=== PATIENT | male | born 1955 | race Caucasian/White ===

== ENCOUNTER 2020-09-03 07:14 | Day surgery (SDC) | payer MEDICARE ==
[2020-09-01 09:48] VITALS: BMI 31.9
[2020-09-03] MEDS ORDERED: ALPRAZolam 0.25 MG TAB PO PRN (07:32)
[2020-09-03] MEDS ORDERED: ASPIRIN 325 MG TAB PO STA (07:32)
[2020-09-03] MEDS ORDERED: NITROGLYCERIN SL TABS 0.4 MG TAB SUBLINGUAL PRN (07:32)
[2020-09-03] MEDS ORDERED: ALPRAZolam 0.5 MG TAB PO PRN (07:32)
[2020-09-03] MEDS ORDERED: ATORVASTATIN 80 MG TAB PO STA (07:32)
[2020-09-03] MEDS ORDERED: HEPARIN SODIUM,PORCINE 2,500 UNIT in SODIUM CHLORIDE 0.9% 250 ML IRRIGATION PRN (07:32)
[2020-09-03] MEDS ORDERED: HEPARIN SODIUM,PORCINE 10,000 UNIT in SODIUM CHLORIDE 0.9% 1,000 ML IRRIGATION PRN (07:32)
[2020-09-03] MEDS ORDERED: SODIUM CHLORIDE 0.9% 1,000 ML in EMPTY BAG 1 BAG IV ONE (07:32)
[2020-09-03] MEDS ORDERED: SODIUM CHLORIDE 0.9% 1,000 ML IV ONE (08:09)
[2020-09-03 08:38] LABS: Glucose,Whole Blood 144 mg/dL (75-99)
[2020-09-03 08:41] LABS: Basophils % (A) 1 %; Eosinophils # (A) 0.2 k/uL (0-0.7); Eosinophils % (A) 3 %; HCT 39.6 % (39.0-53.0); HGB 13.8 gm/dL (13.0-17.5); Lymphocytes # (A) 0.9 k/uL (1.0-4.8); Lymphocytes % (A) 14 %; MCH 32.9 pg (25.0-35.0); MCHC 34.8 g/dL (31.0-37.0); MCV 94.5 fL (80.0-100.0); Mean Platelet Volume 8.4; Monocytes # (A) 0.5 k/uL (0-1.0); Monocytes % (A) 9 %; Neutrophils # (A) 4.6 k/uL (1.3-7.7); Neutrophils % (A) 72 %; Platelet Count 190 k/uL (150-450); RBC 4.19 m/uL (4.30-5.90); RDW 13.3 % (11.5-15.5); WBC 6.4 k/uL (3.8-10.6)
[2020-09-03] MEDS ORDERED: LIDOCAINE 1% INJ 10MG/ML (20 ML MDV) ONE ×2 (08:41→09:54)
[2020-09-03] MEDS ORDERED: VERAPAMIL 2.5 MG/ML 2 ML AMP ONE (08:41)
[2020-09-03 08:48] VITALS: TEMP 98.7
[2020-09-03 08:53] LABS: African American GFR (CKD) >90 (>60 ml/min/1.73 sqM); Anion Gap 7 mmol/L; Blood Urea Nitrogen 27 mg/dL (9-20); Calcium 9.5 mg/dL (8.4-10.2); Carbon Dioxide 30 mmol/L (22-30); Chloride 99 mmol/L (98-107); Glucose 147 mg/dL (74-99); Non-African American GFR(CKD) >90 (>60 ml/min/1.73 sqM); Sodium 136 mmol/L (137-145)
[2020-09-03 09:00] LABS: Potassium 4.8 mmol/L (3.5-5.1)
[2020-09-03] MEDS ORDERED: fentaNYL (PF) 50 MCG/ML 2 ML AMP ONE (09:06)
[2020-09-03] MEDS ORDERED: HEPARIN SODIUM 1,000 UN/ML (10ML VL) ONE (09:06)
[2020-09-03] MEDS ORDERED: MIDAZOLAM 2 MG/2 ML VIAL IVP ONE (09:24)
[2020-09-03] MEDS ORDERED: fentaNYL (PF) 50 MCG/ML 2 ML AMP IVP ONE (09:24)
[2020-09-03] MEDS ORDERED: LIDOCAINE 1% INJ 10MG/ML (20 ML MDV) SQ ONE ×2 (09:27→09:41)
[2020-09-03] MEDS ORDERED: VERAPAMIL SYRINGE (5 MG/10 ML) INTRAARTER ONE (09:30)
[2020-09-03] MEDS ORDERED: HEPARIN SODIUM 1,000 UN/ML (10ML VL) IV ONE (09:32)
[2020-09-03] MEDS ORDERED: IOPAMIDOL-370 125ML BTL INJ ONE (10:02)
[2020-09-03] MEDS ORDERED: RX INFO: IV CONTRAST WAS GIVEN 1 EACH MISC MISCELLANE PRN (10:13)
[2020-09-03] MEDS ORDERED: SODIUM CHLORIDE 0.9% 1,000 ML IV SCH (10:15)
--- NOTE | 2020-09-03 10:21 | P.CARDCATH ---
Date of Procedure: 09/03/20 Preoperative Diagnosis: Positive stress test with ischemia of the inferior wall, frequent PVCs Postoperative Diagnosis: Total occlusion of the mid RCA with both ipsilateral and contralateral collaterals Procedure(s) Performed: Left heart catheterization and aortography. No LV gram Description of Procedure: HISTORY: This is a 65-year-old gentleman with strong family history of ischemic heart disease was evaluated because of frequent PVCs. Patient had a stress test that showed ischemia in the inferior wall. Patient did not have any chest pain. In view of positive stress test, cardiac arrhythmias and family history, patie nt is advised to have cardiac cath for definitive diagnosis. Patient was referred by Dr. Bingham CONSENT:I have discussed the risks, benefits and alternative therapies for the above-mentioned procedure and for both sedation/analgesia as well as necessary blood product administration, if indicated, as they pertain to this patient. The patient has indicated understanding and acceptance of the risks and procedures discussed. PROCEDURE: Patient was brought to the lab in a fasting state. Patient was given some IV sedation. The right radial artery was entered using Seldinger technique. A 6-Icelandic sheath was placed in the radial artery. A 5-Icelandic catheter. The guidewire was advanced. After multiple attempts the wire could not be advanced and the ascending aorta because of tortuosity. The procedure was abandoned from the right radial approach and Was done from the right groin. The right groin is infiltrated with lidocaine and right femoral artery was entered using Seldinger technique. A 6-Icelandic catheter was left in place and selective coronary arteriography and left ventriculography was performed. Patient tolerated the procedure well. Femoral angiogram was performed and Angio-Seal was applied for hemostasis. No immediate complications were noted and patient was transferred to [facility] in a stable condition Conscious Sedation: Versed 1mg Fentanyl 50 g Duration 42minutes . Patient is also given heparin 4000 units HEMODYNAMICS: Aortic pressure is about 130/70 . Left ventricle end-diastolic pressure is 16-20. No gradient across the aortic valve SELECTIVE CORONARY ARTERIOGRAPHY: LEFT MAIN: Normal length and free of occlusive disease THE LEFT ANTERIOR DESCENDING CORONARY ARTERY: . Good caliber vessel free of any significant occlusive disease. Gives rise good-sized diagonal branch THE LEFT CIRCUMFLEX AND IS CORONARY ARTERY: Good caliber vessel giving rise to good-sized OM branch. There could be a total occlusion of the AV groove segment THE RIGHT CORONARY ARTERY: . This is a moderate caliber vessel is the near-total left total occlusion in the midportion. There is ipsilateral collaterals filling the distal RCA. There are also contralateral collaterals LEFT VENTRICULOGRAPHY: Not performed Aortic root injection: This was performed and the right oblique of projection. The aortic valve appears to be uncoiled and dilated. No aortic valve regurgitation FINAL IMPRESSION: . Total or near total occlusion of the RCA. Collaterals both ipsilateral and contralateral. Left coronary system is free of occlusive disease. There is suspicion that could be total occlusion of the apical segment of the circumflex PLAN: Maximum medical therapy. Attempts could be made to open the totally occluded right coronary artery which seemed to be recanalized PROGNOSIS: Fair
[2020-09-03 15:53] VITALS: BP 138/72; PULSE 50
== END 2020-09-03 15:00 | disposition home or self-care (01) ==
LOC: CATHCVL 07:14
PROVIDERS: ATTEND Internal Medicine Cardiovascular Disease
DX: I25.10 Atherosclerotic heart disease of native coronary artery without angina pectoris (principal); I25.82 Chronic total occlusion of coronary artery; I10 Essential (primary) hypertension; I77.1 Stricture of artery; Z20.822 Contact with and (suspected) exposure to COVID-19; I49.3 Ventricular premature depolarization; E78.5 Hyperlipidemia, unspecified; E78.00 Pure hypercholesterolemia, unspecified; E11.9 Type 2 diabetes mellitus without complications; G72.0 Drug-induced myopathy; Z79.84 Long term (current) use of oral hypoglycemic drugs; Z79.82 Long term (current) use of aspirin; Z79.899 Other long term (current) drug therapy
CPT/HCPCS: 93458; 93567; 80048; 85025; 87635; C1760; C1894 ×2; C1769 ×4; J2250; J2001; J3010; J1644; Q9967

== ENCOUNTER 2020-09-17 10:11 | Day surgery (SDC) | payer MEDICARE ==
[2020-09-16 12:52] VITALS: BMI 30.8
[~2020-09-17 10:11] MED LIST: ALPRAZolam 0.25 MG TAB PO PRN; ALPRAZolam 0.5 MG TAB PO PRN; ASPIRIN 325 MG TAB PO STA; ATORVASTATIN 80 MG TAB PO STA; HEPARIN SODIUM,PORCINE 10,000 UNIT in SODIUM CHLORIDE 0.9% 1,000 ML IRRIGATION PRN; HEPARIN SODIUM,PORCINE 2,500 UNIT in SODIUM CHLORIDE 0.9% 250 ML IRRIGATION PRN; NITROGLYCERIN SL TABS 0.4 MG TAB SUBLINGUAL PRN; SODIUM CHLORIDE 0.9% 1,000 ML in EMPTY BAG 1 BAG IV ONE
[2020-09-17 11:15] LABS: Glucose,Whole Blood 145 mg/dL (75-99)
[2020-09-17 11:20] LABS: Basophils # (A) 0.1 k/uL (0-0.2); Basophils % (A) 1 %; Eosinophils # (A) 0.1 k/uL (0-0.7); Eosinophils % (A) 2 %; HCT 41.4 % (39.0-53.0); HGB 14.1 gm/dL (13.0-17.5); Lymphocytes # (A) 1.1 k/uL (1.0-4.8); Lymphocytes % (A) 19 %; MCH 31.2 pg (25.0-35.0); MCV 91.9 fL (80.0-100.0); Mean Platelet Volume 8.4; Monocytes # (A) 0.4 k/uL (0-1.0); Monocytes % (A) 6 %; Neutrophils # (A) 4.1 k/uL (1.3-7.7); Neutrophils % (A) 70 %; Platelet Count 213 k/uL (150-450); RBC 4.51 m/uL (4.30-5.90); RDW 13.1 % (11.5-15.5); WBC 5.9 k/uL (3.8-10.6)
[2020-09-17 11:37] LABS: African American GFR (CKD) >90 (>60 ml/min/1.73 sqM); Anion Gap 9 mmol/L; Blood Urea Nitrogen 13 mg/dL (9-20); Calcium 9.6 mg/dL (8.4-10.2); Carbon Dioxide 26 mmol/L (22-30); Chloride 99 mmol/L (98-107); Glucose 146 mg/dL (74-99); Non-African American GFR(CKD) >90 (>60 ml/min/1.73 sqM); Potassium 4.6 mmol/L (3.5-5.1); Sodium 134 mmol/L (137-145)
[2020-09-17] MEDS ORDERED: LIDOCAINE 1% INJ 10MG/ML (20 ML MDV) ONE (11:52)
[2020-09-17] MEDS ORDERED: fentaNYL (PF) 50 MCG/ML 2 ML AMP ONE (12:04)
[2020-09-17] MEDS ORDERED: fentaNYL (PF) 50 MCG/ML 2 ML AMP IV ONE (12:28)
[2020-09-17] MEDS ORDERED: LIDOCAINE 1% INJ 10MG/ML (20 ML MDV) SQ ONE (12:33)
[2020-09-17] MEDS ORDERED: CLOPIDOGREL 75 MG TAB ONE (12:36)
[2020-09-17] MEDS ORDERED: HEPARIN SODIUM 1,000 UN/ML (10ML VL) ONE (12:36)
[2020-09-17] MEDS ORDERED: CLOPIDOGREL 75 MG TAB PO ONE (12:42)
[2020-09-17] MEDS ORDERED: MIDAZOLAM 2 MG/2 ML VIAL IV ONE (12:47)
[2020-09-17] MEDS ORDERED: IOPAMIDOL-370 100ML BTL INJ ONE ×2 (13:00→13:22)
[2020-09-17] MEDS ORDERED: RX INFO: IV CONTRAST WAS GIVEN 1 EACH MISC MISCELLANE PRN (13:46)
[2020-09-17] MEDS ORDERED: ZOLPIDEM 5 MG TAB PO PRN (13:46)
[2020-09-17] MEDS ORDERED: MAG HYDROX/AL HYDROX/SIMETH 30 ML CUP PO PRN (13:46)
[2020-09-17] MEDS ORDERED: ATROPINE SULFATE 0.1 MG/ML 10ML SYRINGE IV PRN (13:46)
[2020-09-17] MEDS ORDERED: NITROGLYCERIN SL TABS 0.4 MG TAB SUBLINGUAL PRN (13:46)
[2020-09-17] MEDS ORDERED: SODIUM CHLORIDE 0.9% 1,000 ML IV SCH (14:00)
[2020-09-17 17:11] LABS: Glucose,Whole Blood 148 mg/dL (75-99)
[2020-09-17] MEDS: carvediloL 6.25 MG TAB PO SCH (18:00)
[2020-09-17 20:03] LABS: Glucose,Whole Blood 231 mg/dL (75-99)
--- NOTE | 2020-09-17 20:33 | PTCA ---
PERCUTANEOUSTRANS CORORONARY ANGIOGRAPHY Mr. Doherty is a 65-year-old male known history of hypertension, hyperlipidemia, diabetes mellitus, who has been followed by Dr. Bingham, underwent myocardial perfusion imaging that revealed evidence of inferior wall ischemia. Subsequently, underwent cardiac catheterization by Dr. Su and that revealed chronically occluded right coronary artery with collaterals from the left system. In view of that, and after discussion with the patient, recommendation again regarding attempt angioplasty and stenting of the right coronary artery. The procedure, as well as the risks and complications, were discussed with the patient who is in full understanding and agreement. PROCEDURE: Patient was brought to laboratory supervisor in a fasting semi-sedated state after receiving fentanyl and Benadryl and achieving moderate conscious sedated state. Using Xylocaine anesthesia and Seldinger technique, a 6-Sudanese sheath was introduced in the left femoral artery. Right coronary angiography performed using 6-Sudanese 0.75 left Amplatz catheter, after cannulating the right coronary ostium a SuperCross straight microcatheter with a 0.014 balanced medium weight J-wire was advanced across the vessel. Multiple attempts to cross the lesion in the total occlusion were unsuccessful. That wire was removed and a Whisper J-wire was advanced and was unsuccessful subsequently a Fielder XT was advanced and there was no ability to reconnect to the distal segment. There was some intimal dissection at that time. Then, because of the inability to reconnect to the distal cap, the procedure was stopped. There was no immediate complication. Patient had no chest discomfort or EKG changes. Of note, the patient received oral loading dose of clopidogrel, as well as 8000 units of intravenous heparin. His ACC was followed. RESULTS: Unsuccessful recanalization of chronically occluded right coronary artery. RECOMMENDATION: Patient will be continued on his present medical therapy with maximal medical therapy. If he has any chest discomfort, then I would recommend referral to a tertiary care service to undergo high risk chronic total occlusion of the right coronary artery. Those findings and recommendations were discussed with the patient his family who were singing in agreement. Duration of the sedation is 54 minutes. MMANDREWL / IJN: [id number] / MTDD
[2020-09-17] MEDS ORDERED: lisinopriL 20 MG TAB PO SCH (21:00)
[2020-09-18 02:57] VITALS: RESP 16
[2020-09-18 06:01] LABS: African American GFR (CKD) >90 (>60 ml/min/1.73 sqM); Anion Gap 5 mmol/L; Blood Urea Nitrogen 13 mg/dL (9-20); Carbon Dioxide 29 mmol/L (22-30); Chloride 99 mmol/L (98-107); Glucose 111 mg/dL (74-99); Non-African American GFR(CKD) >90 (>60 ml/min/1.73 sqM); Potassium 4.4 mmol/L (3.5-5.1); Sodium 133 mmol/L (137-145)
[2020-09-18 06:58] LABS: Glucose,Whole Blood 145 mg/dL (75-99)
[2020-09-18 07:23] VITALS: BP 163/81; PULSE 65; TEMP 98.3
[2020-09-18] MEDS: carvediloL 6.25 MG TAB PO SCH (07:46)
[2020-09-18] MEDS ORDERED: MULTIVITAMINS, THERA 1 EACH TAB PO SCH (09:00)
[2020-09-18] MEDS ORDERED: ASPIRIN 81 MG PO SCH (09:00)
[2020-09-18] MEDS ORDERED: CLOPIDOGREL 75 MG TAB PO SCH (09:00)
[2020-09-18] MEDS ORDERED: ATORVASTATIN 40 MG TAB PO SCH (09:00)
--- NOTE | 2020-09-18 09:16 | PN ---
PROGRESS NOTE Mr. Doherty is a 65-year-old male with known history of hypertension, hyperlipidemia, diabetes mellitus, who underwent cardiac catheterization, was found to have chronically occluded right coronary artery. He was brought in yesterday to an attempt to recannulize the vessel. There was inability to reconnect with the distal cap. He is doing well this morning. He has no symptoms. His is breathing stable. He denies any dizziness, palpitation. He denies any nausea. He continued to be on aspirin once a day, Lipitor 40 mg daily, Coreg 6.25 mg twice a day, Plavix 75 mg daily, Zestril 40 mg daily. PHYSICAL EXAMINATION: Blood pressure running in the 130s with a heart rate in 60s. Lungs: Clear. Heart regular rate and rhythm, S1, S2. No S3. No rub. Abdomen: Soft, nontender. Left groin no hematoma. LAB DATA: Lab data revealed BUN and creatinine 13 and 0.67, potassium 4.4. IMPRESSION: 1. Status post unsuccessful recanalization of chronic occluded right coronary artery. 2. Hypertension. 3. Hyperlipidemia. 4. Diabetes mellitus. RECOMMENDATIONS: Patient should be able to be discharged home today. Follow up as an outpatient with Dr. Bingham. If he has any symptoms, then I would recommend to proceed with high risk angioplasty with recanalization of chronic occlusion, possible retrograde approach in a tertiary care facility. Those findings were discussed with the patient, who was in full understanding and agreement. MMODL / IJN: [id number] /
== END 2020-09-18 09:22 | disposition home or self-care (01) ==
LOC: CATHCVL 10:11 → 6NMEDSUR 14:41 → CATHCVL 09-18 09:22
PROVIDERS: ATTEND Internal Medicine Interventional Cardiology
DX: I25.10 Atherosclerotic heart disease of native coronary artery without angina pectoris (principal); I25.82 Chronic total occlusion of coronary artery; E11.9 Type 2 diabetes mellitus without complications; I10 Essential (primary) hypertension; E78.5 Hyperlipidemia, unspecified; Z79.82 Long term (current) use of aspirin; Z53.8 Procedure and treatment not carried out for other reasons
CPT/HCPCS: 92943; 80048 ×2; 85025; C9600; C1769 ×5; C1760; C1887 ×2; C1894; J2250; J2001; J3010; J1644; Q9967

== ENCOUNTER 2022-03-23 07:15 | Day surgery (SDC) | payer MEDICARE ==
[2022-03-16 09:39] VITALS: BMI 30.4
[~2022-03-23 07:15] MED LIST changes: -ALPRAZolam 0.25 MG TAB PO PRN; -ALPRAZolam 0.5 MG TAB PO PRN; -ASPIRIN 325 MG TAB PO STA; -ATORVASTATIN 80 MG TAB PO STA; +DEXAMETHASONE SOD PHOSPHATE 4 MG/ML 1 ML VIAL IV ONE; -HEPARIN SODIUM,PORCINE 10,000 UNIT in SODIUM CHLORIDE 0.9% 1,000 ML IRRIGATION PRN; -HEPARIN SODIUM,PORCINE 2,500 UNIT in SODIUM CHLORIDE 0.9% 250 ML IRRIGATION PRN; +HYDROmorphone 0.5 MG/0.5 ML SYRINGE IVP PRN; +LACTATED RINGERS 1,000 ML IV SCH; +LIDOCAINE 1% (10MG/ML) FOR IV START INTRADERMA PRN; +MIDAZOLAM 2 MG/2 ML VIAL IV PRN; -NITROGLYCERIN SL TABS 0.4 MG TAB SUBLINGUAL PRN; +ONDANSETRON 4 MG/2 ML VIAL IVP ONE; -SODIUM CHLORIDE 0.9% 1,000 ML in EMPTY BAG 1 BAG IV ONE
[2022-03-23 07:34] VITALS: TEMP 97.1
[2022-03-23 07:44] LABS: Glucose,Whole Blood 178 mg/dL (70-110)
[2022-03-23] MEDS ORDERED: PROPOFOL 10 MG/ML 20 ML VIAL IV ONE (08:05)
--- NOTE | 2022-03-23 08:10 | P.GSHP ---
History of Present Illness H&P Date: 03/23/22 Chief Complaint: Colon cancer screening 67-year-old male here today for screening colonoscopy. Last colonoscopy he believes was 10 years or so. No bowel complaints. No family history of colon cancer. Past Medical History Past Medical History: Cancer, Diabetes Mellitus, Eye Disorder, Hyperlipidemia, Hypertension Additional Past Medical History / Comment(s): Abdominal hernia, hx skin cancer, wet macular degeneration. "Failed stress test." History of Any Multi-Drug Resistant Organisms: None Reported Past Surgical History: Cardiac Ablation Additional Past Surgical History / Comment(s): Attempted stent("unable to place due to blockage"), removal of skin cancer from abdomen. Past Anesthesia/Blood Transfusion Reactions: No Reported Reaction, Motion Sickness Past Psychological History: No Psychological Hx Reported Smoking Status: Never smoker, Unknown if ever smoked Past Alcohol Use History: Occasional Past Drug Use History: None Reported - Past Family History Mother Family Medical History: No Reported History Medications and Allergies Home Medications Medication Instructions Recorded Confirmed Type Ascorbic Acid [Vitamin C] 1,000 mg PO DAILY 09/01/20 03/22/22 History Aspirin [Adult Low Dose Aspirin EC] 81 mg PO DAILY 09/01/20 03/22/22 History Multivitamins, Thera [Multivitamin 1 tab PO DAILY 09/01/20 03/22/22 History (formulary)] carvediloL [Coreg] 6.25 mg PO BID 09/01/20 03/22/22 History metFORMIN HCL [Glucophage] 1,000 mg PO BID 09/01/20 03/23/22 History Cholecalciferol [Vitamin D3 (25 50 mcg PO DAILY 03/16/22 03/22/22 History Mcg = 1000 Iu)] Rosuvastatin [Crestor] 20 mg PO QAM 03/16/22 03/23/22 History Triamterene/Hydrochlorothiazid 1 each PO QAM 03/16/22 03/22/22 History [Triamterene-Hctz 37.5-25 mg Tb] Valsartan 160 mg PO BID 03/16/22 03/23/22 History Vit C/E/Zn/Coppr/Lutein/Zeaxan 1 each PO BID 03/16/22 03/22/22 History [Preservision Areds 2 Softgel] Aspirin 81 mg PO DAILY 03/23/22 03/23/22 History Allergies Allergy/AdvReac Type Severity Reaction Status Date / Time pravastatin Allergy leg cramps Verified 03/23/22 07:30 Surgical - Exam Vital Signs Temp Pulse Resp BP Pulse Ox 97.1 F L 68 16 158/75 96 03/23/22 07:32 03/23/22 07:32 03/23/22 07:32 03/23/22 07:32 03/23/22 07:32 Physical exam: General: Well-developed, well-nourished HEENT: Normocephalic, sclerae nonicteric Abdomen: Nontender, nondistended Extremities: No edema Neuro: Alert and oriented Results - Labs Abnormal Lab Results - Last 24 Hours (Table) 03/23/22 Range/Units 07:41 POC Glucose (mg/dL) 178 H (70-110) mg/dL Assessment and Plan (1) Colon cancer screening Narrative/Plan: Will proceed with colonoscopy at this time. Current Visit: Yes Status: Acute Code(s): Z12.11 - ENCOUNTER FOR SCREENING FOR MALIGNANT NEOPLASM OF COLON SNOMED Code(s): 038238419
--- NOTE | 2022-03-23 08:27 | P.PCN ---
Date of Procedure: 03/23/22 Procedure(s) Performed: PREOPERATIVE DIAGNOSIS: Colon cancer screening POSTOPERATIVE DIAGNOSIS: Small rectal polyp, diverticulosis PROCEDURE: Colonoscopy with snare polypectomy ANESTHESIA: MAC SURGEON: Bunny Carlton M.D. SPECIMENS: None ENDOSCOPIC PROCEDURE: The patient was placed on the endoscopy table in the left decubitus position. The Olympus colonoscope was inserted into the anus and passed under direct visualization to the base of the cecum. The appendiceal orifice was visualized. From that point the scope was slowly withdrawn inspecting all surfaces carefully. There were no neoplastic inflammatory or polypoid lesions throughout the cecum, ascending, transverse, descending, and sigmoid colon. In the rectum a small polyp was seen and removed using the snare with cautery technique. No polypoid tissue was noted. The base of the polyp was inspected and appeared completely fulgurated. There was mild left-sided diverticulosis present. Digital rectal examination was normal. The patient was taken to the recovery room in stable condition per anesthesia guidelines. RECOMMENDATIONS: Resume diet Repeat colonoscopy in 7 years.
[2022-03-23 08:49] VITALS: BP 128/67; PULSE 58; RESP 16
== END 2022-03-23 09:15 | disposition home or self-care (01) ==
LOC: ORWHC2ENDO 07:15
PROVIDERS: ATTEND Surgery
DX: Z12.11 Encounter for screening for malignant neoplasm of colon (principal); K62.1 Rectal polyp; K57.30 Diverticulosis of large intestine without perforation or abscess without bleeding; I25.10 Atherosclerotic heart disease of native coronary artery without angina pectoris; I25.82 Chronic total occlusion of coronary artery; E11.9 Type 2 diabetes mellitus without complications; E78.5 Hyperlipidemia, unspecified; I10 Essential (primary) hypertension; Z88.8 Allergy status to other drugs, medicaments and biological substances; Z79.82 Long term (current) use of aspirin; Z79.84 Long term (current) use of oral hypoglycemic drugs; Z79.899 Other long term (current) drug therapy
CPT/HCPCS: 45385; J2704

== ENCOUNTER 2023-11-21 10:48 | Day surgery (SDC) | payer MEDICARE ==
[2023-11-21 11:52] VITALS: TEMP 97
[2023-11-21] MEDS: ACETAMINOPHEN TAB 500 MG TAB PO PRN (12:00)
[2023-11-21 12:19] LABS: Glucose,Whole Blood 129 mg/dL (70-110)
[2023-11-21] MEDS: LACTATED RINGERS 1,000 ML IV SCH (12:20)
[2023-11-21] MEDS: ONDANSETRON 4 MG/2 ML VIAL IVP ONE (12:20)
[2023-11-21] MEDS: DEXAMETHASONE SOD PHOSPHATE 4 MG/ML 1 ML VIAL IV ONE (12:20)
[2023-11-21] MEDS: IV FLUID CONTINUATION 1,000 ML IV ONE (12:32)
[2023-11-21] MEDS: MIDAZOLAM 2 MG/2 ML VIAL IV ONE (12:38)
--- NOTE | 2023-11-21 12:44 | P.GSHP ---
History of Present Illness H&P Date: 11/21/23 Chief Complaint: Incarcerated ventral hernia 68-year-old male here for elective repair incarcerated abdominal wall hernia. Patient's hernia present just above the umbilical region. Increasing soreness in size over the last year or 2. Patient with mild obesity BMI today 32. No smoking. No history of prior repair. Past Medical History Past Medical History: Cancer, Diabetes Mellitus, Eye Disorder, Hyperlipidemia, Hypertension Additional Past Medical History / Comment(s): Abdominal hernia, hx skin cancer, wet macular degeneration. "Failed stress test." History of Any Multi-Drug Resistant Organisms: None Reported Past Surgical History: Cardiac Ablation Additional Past Surgical History / Comment(s): Attempted stent("unable to place due to blockage"), removal of skin cancer from abdomen. Past Anesthesia/Blood Transfusion Reactions: No Reported Reaction, Motion Sickness Smoking Status: Never smoker, Unknown if ever smoked - Past Family History Mother Family Medical History: No Reported History Father Family Medical History: Coronary Artery Disease (CAD) Medications and Allergies Home Medications Medication Instructions Recorded Confirmed Type Ascorbic Acid [Vitamin C] 1,000 mg PO DAILY 09/01/20 11/21/23 History Multivitamins, Thera [Multivitamin 1 tab PO DAILY 09/01/20 11/21/23 History (formulary)] carvediloL [Coreg] 25 mg PO BID 09/01/20 11/21/23 History metFORMIN HCL [Glucophage] 1,000 mg PO BID 09/01/20 11/21/23 History Cholecalciferol [Vitamin D3 (25 50 mcg PO DAILY 03/16/22 11/21/23 History Mcg = 1000 Iu)] Rosuvastatin [Crestor] 20 mg PO HS 03/16/22 11/21/23 History Triamterene/Hydrochlorothiazid 1 each PO QAM 03/16/22 11/21/23 History [Triamterene-Hctz 37.5-25 mg Tb] Vit C/E/Zn/Coppr/Lutein/Zeaxan 1 each PO BID 03/16/22 11/21/23 History [Preservision Areds 2 Softgel] Aspirin 81 mg PO DAILY 03/23/22 11/21/23 History Empagliflozin [Jardiance] 25 mg PO DAILY 11/16/23 11/21/23 History Ezetimibe [Zetia] 10 mg PO DAILY 11/16/23 11/21/23 History Valsartan 80 mg PO DAILY 11/16/23 11/21/23 History Valsartan 160 mg PO HS 11/16/23 11/21/23 History Allergies Allergy/AdvReac Type Severity Reaction Status Date / Time pravastatin Allergy leg cramps Verified 11/21/23 11:41 Surgical - Exam Vital Signs Temp Pulse Resp BP Pulse Ox 97.0 F L 61 18 172/70 95 11/21/23 11:49 11/21/23 11:49 11/21/23 11:49 11/21/23 11:49 11/21/23 11:49 Physical exam: General: Well-developed, well-nourished HEENT: Normocephalic, sclerae nonicteric Abdomen: Nontender, nondistended, incarcerated hernia just above umbilicus Extremities: No edema Neuro: Alert and oriented Results - Labs Abnormal Lab Results - Last 24 Hours (Table) 11/21/23 Range/Units 12:14 POC Glucose (mg/dL) 129 H (70-110) mg/dL Assessment and Plan (1) Incarcerated ventral hernia Narrative/Plan: 68-year-old male with incarcerated ventral hernia. Will proceed with open repair incarcerated ventral hernia with mesh. Risks of bleeding, infection, recurrence, bladder and bowel injury, numbness, nerve injury were discussed with the patient. The patient understands and wishes to proceed. Current Visit: Yes Status: Acute Code(s): K43.6 - OTHER AND UNSP VENTRAL HERNIA WITH OBSTRUCTION, W/O GANGRENE SNOMED Code(s): 922918892
[2023-11-21] MEDS: HEPARIN SODIUM,PORCINE 5,000 UNIT/ML 1 ML VIAL SQ PRN (12:55)
[2023-11-21] MEDS ORDERED: PROPOFOL 10 MG/ML 20 ML VIAL IV ONE (13:08)
[2023-11-21] MEDS ORDERED: DEXAMETHASONE SOD PHOSPHATE 4 MG/ML 1 ML VIAL ONE (13:08)
[2023-11-21] MEDS ORDERED: MIDAZOLAM 2 MG/2 ML VIAL ONE (13:08)
[2023-11-21] MEDS ORDERED: SUCCINYLCHOLINE CHLORIDE 200 MG/10 ML VIAL IV ONE (13:08)
[2023-11-21] MEDS ORDERED: LIDOCAINE 1% INJ 10MG/ML (20 ML MDV) ONE (13:08)
[2023-11-21] MEDS ORDERED: ePHEDrine 50 MG/ML 1 ML VIAL ONE (13:08)
[2023-11-21] MEDS ORDERED: ROCURONIUM 10 MG/ML (5 ML VIAL) IV ONE (13:08)
[2023-11-21] MEDS ORDERED: BUPIVACAIN-EPI 0.5%-1:200,000 30 ML VIAL ONE (13:08)
[2023-11-21] MEDS ORDERED: GLYCOPYRROLATE 0.2 MG/ML 2 ML VIAL ONE (13:08)
[2023-11-21] MEDS ORDERED: fentaNYL (PF) 50 MCG/ML 2 ML AMP ONE (13:08)
[2023-11-21] MEDS ORDERED: NEOSTIGMINE 1 MG/ML 10 ML VIAL ONE (13:08)
--- NOTE | 2023-11-21 13:10 | P.ANPRN ---
Procedure Note - Anesthesia - Nerve Block Performed Bilateral Rectus Abdominis Single Time Out Performed: Yes Date of Procedure: 11/21/23 Procedure Start Time: 12:38 Procedure Stop Time: 12:44 Location of Patient: PreOp Indication: Acute Post-Operative Pain, Requested by Surgeon Sedation Type: Sedate with meaningful contact maintained Preparation: Sterile Prep Position: Supine Needle Types: Pajunk Needle Gauge: 21 Ultrasound used to visualize needle placement: Yes Ultrasound used to observe medication spread: Yes Blood Aspirated: No Pain Paresthesia on Injection Noted: No Resistance on Injection: Normal Image Stored and Saved: Yes Events: Uneventful and Well Tolerated (In 0.5% 20 cc plus dexamethasone 4 mg given bilateral)
[2023-11-21] MEDS: BUPIVACAINE (PF) 0.25% 30 ML VIAL SQ ONE ×2 (13:31→14:50)
[2023-11-21] MEDS: LACTATED RINGERS 1,000 ML IV ONE (14:39)
--- NOTE | 2023-11-21 15:10 | P.OP ---
Date of Procedure: 11/21/23 Procedure(s) Performed: PREOPERATIVE DIAGNOSIS: Incarcerated ventral hernia POSTOPERATIVE DIAGNOSIS: Same PROCEDURE: Open repair incarcerated ventral hernia with mesh SURGEON: Dr. Carlton ANESTHESIA: General OPERATIVE PROCEDURE DETAILS: Patient placed on the operating table in the supine position. Abdomen was prepped and draped in usual sterile fashion. A vertical incision was then made above the umbilicus curving around the right side of the umbilical region. Dissection through the subcutaneous tissues took place using electrocautery. The patient had 2 main fascial defects. Each measured about 1.5 to 2 cm in size. These were very close in proximity to 1 another in the supraumbilical location. A small bridge of tissue between the 2 was divided. We now had a 5 x 4 cm defect. The fat circumferentially was mobilized. The umbilical attachment was also elevated. At the base of the umbilicus a small 1 cm defect was seen. This was left separate. Preperitoneal space was then carefully dissected using both blunt dissection and cautery. We were able to avoid entrance into the peritoneal cavity. We had adequate space now for a sizable mesh. The 8 x 12 cm cm Ventrio mesh was placed in the preperitoneal space and sutured to the fascia using interrupted trans-fascial 0 Ethibond sutures. Following that the midline fascia was reapproximated using interrupted 0 Ethibond mattress sutures. The defect at the umbilical region was also reapproximated using 0 Ethibond sutures. A drain was placed anterior to the fascia after irrigation took place. This exited from the right lateral lower quadrant and was sutured to the skin using a Ethibond stitch. The subcutaneous tissues were closed using 3-0 Vicryl sutures. The skin was closed using a running 4-0 Monocryl suture. Skin glue and sterile dressings were applied. HERNIA CHARACTERISTICS: Length: 5 cm Width: 4 cm Type: Incarcerated ventral TYPE OF MESH USED: Sublay Ventrio FIXATION: 0 Ethibond PREOPERATIVE DISCUSSION ON SMOKING CESSASTION: Yes PREOPERATIVE DISCUSSION ON MORBID OBESITY: Yes PREOPERATIVE DISCUSSION ON APPROPRIATE USE OF NARCOTIC USE: Yes PREOPERATIVE EDUCATION: Multi Modal, Smoking Cessation and Weight Loss with BMI over 35. DISPOSITION: Stable to recovery room
[2023-11-21] MEDS: HYDROmorphone 0.5 MG/0.5 ML SYRINGE IVP PRN (15:14)
[2023-11-21 15:17] VITALS: RESP 16
[2023-11-21] MEDS: IBUPROFEN 600 MG TAB PO SCH (16:25)
[2023-11-21 16:47] VITALS: BP 145/76; PULSE 74
[2023-11-21] MEDS ORDERED: ACETAMINOPHEN TAB 325 MG TAB PO SCH (18:00)
== END 2023-11-21 17:38 | disposition home or self-care (01) ==
LOC: OR 10:48
PROVIDERS: ATTEND Surgery
DX: K43.6 Other and unspecified ventral hernia with obstruction, without gangrene (principal); E78.5 Hyperlipidemia, unspecified; E11.9 Type 2 diabetes mellitus without complications; E66.9 Obesity, unspecified; G89.18 Other acute postprocedural pain; I10 Essential (primary) hypertension; Z68.32 Body mass index [BMI] 32.0-32.9, adult; Z79.899 Other long term (current) drug therapy
CPT/HCPCS: 64488; 49592; C1781; J2250; J0330; J1644; J1100; J2710; J0690; J2405; J2001; J3010; J2704; J1170; J0665; J1596

== ENCOUNTER 2023-11-24 12:06 | Emergency (ER) | payer MEDICARE ==
--- NOTE | 2023-11-24 12:42 | ED ---
General Adult HPI - General Chief complaint: Recheck/Abnormal Lab/Rx Stated complaint: post op complications Time Seen by Provider: 11/24/23 12:29 Source: patient, family, RN notes reviewed Mode of arrival: ambulatory Limitations: no limitations - History of Present Illness Initial comments: 68-year-old male presents emergency department with his for a chief complaint of constipation. Patient was advised by general surgeon to report to the emergency department for further evaluation. Patient states that he had multiple surgical hernia repairs on Tuesday with Dr. Carlton and has not had a bowel movement since. Patient states that he has been passing gas. endorses minimal abdominal pain rated as a 3-4/10. Denies nausea and vomiting. has an a bdominal wound drain in place. - Related Data Home Medications Medication Instructions Recorded Confirmed Ascorbic Acid [Vitamin C] 1,000 mg PO DAILY 09/01/20 11/21/23 Multivitamins, Thera [Multivitamin 1 tab PO DAILY 09/01/20 11/21/23 (formulary)] carvediloL [Coreg] 25 mg PO BID 09/01/20 11/21/23 metFORMIN HCL [Glucophage] 1,000 mg PO BID 09/01/20 11/21/23 Cholecalciferol [Vitamin D3 (25 50 mcg PO DAILY 03/16/22 11/21/23 Mcg = 1000 Iu)] Rosuvastatin [Crestor] 20 mg PO HS 03/16/22 11/21/23 Triamterene/Hydrochlorothiazid 1 each PO QAM 03/16/22 11/21/23 [Triamterene-Hctz 37.5-25 mg Tb] Vit C/E/Zn/Coppr/Lutein/Zeaxan 1 each PO BID 03/16/22 11/21/23 [Preservision Areds 2 Softgel] Aspirin 81 mg PO DAILY 03/23/22 11/21/23 Empagliflozin [Jardiance] 25 mg PO DAILY 11/16/23 11/21/23 Ezetimibe [Zetia] 10 mg PO DAILY 11/16/23 11/21/23 Valsartan 80 mg PO DAILY 11/16/23 11/21/23 Valsartan 160 mg PO HS 11/16/23 11/21/23 Previous Rx's Medication Instructions Recorded oxyCODONE HCL [OxyIR] 5 mg PO Q6H PRN 3 Days #6 tab 11/21/23 Docusate [Colace] 100 mg PO DAILY #10 capsule 11/24/23 Allergies Allergy/AdvReac Type Severity Reaction Status Date / Time pravastatin Allergy leg cramps Verified 11/24/23 12:13 Review of Systems ROS Statement: Those systems with pertinent positive or pertinent negative responses have been documented in the HPI. ROS Other: All systems not noted in ROS Statement are negative. Past Medical History Past Medical History: Cancer, Diabetes Mellitus, Eye Disorder, Hyperlipidemia, Hypertension Additional Past Medical History / Comment(s): Abdominal hernia, hx skin cancer, wet macular degeneration. "Failed stress test." History of Any Multi-Drug Resistant Organisms: None Reported Past Surgical History: Cardiac Ablation, Hernia Repair Additional Past Surgical History / Comment(s): Attempted stent("unable to place due to blockage"), removal of skin cancer from abdomen. Past Anesthesia/Blood Transfusion Reactions: No Reported Reaction, Motion Sickness Past Psychological History: No Psychological Hx Reported Smoking Status: Never smoker, Unknown if ever smoked Past Alcohol Use History: None Reported Past Drug Use History: None Reported - Past Family History Mother Family Medical History: No Reported History Father Family Medical History: Coronary Artery Disease (CAD) General Exam - General Exam Comments Initial Comments: Visual Physical Exam Vital signs reviewed General: Well-appearing, nontoxic, no acute distress. Head: Normocephalic, atraumatic Eyes: PERRLA, EOMI ENT: Airway patent Chest: Nonlabored breathing Skin: No visual rash, normal skin tone Neuro: Alert and oriented 3 Musculoskeletal: No gross abnormalities Limitations: no limitations General appearance: alert, in no apparent distress Head exam: Present: atraumatic, normocephalic, normal inspection Eye exam: Present: normal appearance, PERRL, EOMI. Absent: scleral icterus, conjunctival injection, periorbital swelling ENT exam: Present: normal exam, mucous membranes moist Neck exam: Present: normal inspection. Absent: tenderness, meningismus, lymphadenopathy Respiratory exam: Present: normal lung sounds bilaterally. Absent: respiratory distress, wheezes, rales, rhonchi, stridor Cardiovascular Exam: Present: regular rate, normal rhythm, normal heart sounds. Absent: systolic murmur, diastolic murmur, rubs, gallop, clicks GI/Abdominal exam: Present: soft, tenderness (mild diffuse), normal bowel sounds, other (LIA drain in place). Absent: distended, guarding, rebound, rigid Extremities exam: Present: normal inspection, full ROM, normal capillary refill. Absent: tenderness, pedal edema, joint swelling, calf tenderness Skin exam: Present: warm, dry, intact, normal color. Absent: rash Course Vital Signs 11/24/23 12:11 Temperature 97.4 F L Pulse Rate 71 Respiratory 20 Rate Blood Pressure 127/79 O2 Sat by Pulse 95 Oximetry Medical Decision Making - Medical Decision Making Was pt. sent in by a medical professional or institution (, PA, [employer], urgent care, hospital, or alf...) When possible be specific @ -No Did you speak to anyone other than the patient for history (EMS, parent, family, police, friend...)? What history was obtained from this source @ -No Did you review nursing and triage notes (agree or disagree)? Why? @ -I reviewed the patient's postsurgical note from 11/21/23 where he underwent multiple abdominal hernia surgical repairs with Dr. Carlton Were old charts reviewed (outside hosp., previous admission, EMS record, old EKG, old radiological studies, urgent care reports/EKG's, alf records)? Report findings @ -Reviewed the patient's previous surgical record from where he underwent multiple abdominal hernia repairs with Dr. Carlton Differential Diagnosis (chest pain, altered mental status, abdominal pain women, abdominal pain men, vaginal bleeding, weakness, fever, dyspnea, syncope, headac he, dizziness, GI bleed, back pain, seizure, CVA, palpatations, mental health, musculoskeletal)? @ -Differential Abdominal Pain Men: Appendicitis, cholecystitis, diverticulosis, ischemic bowel, pancreatitis, hepatitis, UTI, gastroenteritis, AAA, incarcerated hernia, bowel obstruction, constipation, inflammatory bowel, hepatitis, peptic ulcer disease, splenic infarction, perforated viscus, testicular torsion, this is not meant to be an all-inclusive list EKG interpreted by me (3pts min.). @ -none X-rays interpreted by me (1pt min.). @ -XR KUB reveals a small to moderate amount of stool in the colon without a nonspecific bowel gas pattern CT interpreted by me (1pt min.). @ -CT of the abdomen and pelvis reveals fat stranding both in the subcutaneous fat and deeper intra-abdominal omental fat behind the umbilicus fluid collection measuring 5.7 x 4.9 x 2.2 cm along the inferior portion of the mesh repair within the intra-abdominal space. moderate stool burden- constipation U/S interpreted by me (1pt. min.). @ -None done What testing was considered but not performed or refused? (CT, X-rays, U/S, labs)? Why? @ -None What meds were considered but not given or refused? Why? @ -None Did you discuss the management of the patient with other professionals (professionals i.e. , PA, [employer], lab, RT, psych nurse, social service agency director, rattling machine tender, teacher, reserve officer, binder caser)? Give summary @ -I spoke with general surgeon who is on-call, Dr. Goyal, because the patient's surgeon is out of town. CT imaging results reviewed and patient is appropriate for discharge home with follow up outpatient as scheduled for further evaluation and there is minimal clinical concern for potential abscess formation. Was smoking cessation discussed for >3mins.? @ -No Was critical care preformed (if so, how long)? @ -No Were there social determinants of health that impacted care today? How? (Homelessness, low income, unemployed, alcoholism, drug addiction, t ransportation, low edu. Level, literacy, decrease access to med. care, long-term, rehab)? @ -No Was there de-escalation of care discussed even if they declined (Discuss DNR or withdrawal of care, Hospice)? DNR status @ -No What co-morbidities impacted this encounter? (DM, HTN, Smoking, COPD, CAD, Cancer, CVA, ARF, Chemo, Hep., AIDS, mental health diagnosis, sleep apnea, morbid obesity)? @ -None Was patient admitted / discharged? Hospital course, mention meds given and route, prescriptions, significant lab abnormalities, going to OR and other pertinent info. @ -Discharge. 68-year-old male with constipation and mild abdominal pain after hernia repair. Patient was evaluated in the waiting room where a abdominal x- ray was ordered with interpretation as nonspecific bowel gas pattern. Due to patient's recent history of mild abdominal pain CT imaging is ordered in addition to basic labs for further evaluation. Patient sitting with this plan. On physical examination the patient is noted to have a LIA tube in place with postsurgical sites healing well with no signs of purulence and mild erythema is present. CBC unremarkable, CMP reveals hyponatremia of 132, BUN 35 creatinine 1.27, lactic acid nonelevated at 0.9, CT imaging reveals possible abscess or postsurgical seroma. Spoke with general surgeon regard to the CT imaging findings and patient is stable for discharge with follow-up as scheduled. Patient was offered multiple avenues for constipation including milk of magnesia to take at home, suppository, or enema. Patient elects for milk of magnesia and states that he will take this medication at home. Additionally patient sent a prescription for Colace. Recommend that he increase hydration and fiber intake and activity as tolerated to aid in constipation relief. All questions answered at bedside and strict return parameters discussed with the patient is verbalized understanding. Case discussed with Dr. Pruett Undiagnosed new problem with uncertain prognosis? @ -No Drug Therapy requiring intensive monitoring for toxicity (Heparin, Nitro, Insul in, Cardizem)? @ -No Were any procedures done? @ -No Diagnosis/symptom? @ -constipation, seroma Acute, or Chronic, or Acute on Chronic? @ -Acute Uncomplicated (without systemic symptoms) or Complicated (systemic symptoms)? @ -uncomplicated Side effects of treatment? @ -No Exacerbation, Progression, or Severe Exacerbation? @ -No Poses a threat to life or bodily function? How? (Chest pain, [place], HI, pneumonia, PE, COPD, DKA, ARF, appy, cholecystitis, CVA, Diverticulitis, Homicidal, Suicidal, threat to staff... and all critical care pts) @ -No - Lab Data Result diagrams: 11/24/23 13:34 11/24/23 13:34 Lab Results 11/24/23 11/24/23 11/24/23 Range/Units 13:34 13:34 13:34 WBC 5.9 (3.8-10.6) k/uL RBC 4.25 L (4.30-5.90) m/uL Hgb 12.9 L (13.0-17.5) gm/dL Hct 40.3 (39.0-53.0) % MCV 94.8 (80.0-100.0) fL MCH 30.3 (25.0-35.0) pg MCHC 32.0 (31.0-37.0) g/dL RDW 12.9 (11.5-15.5) % Plt Count 199 (150-450) k/uL MPV 7.6 Neutrophils % 73 % Lymphocytes % 13 % Monocytes % 9 % Eosinophils % 3 % Basophils % 1 % Neutrophils # 4.3 (1.3-7.7) k/uL Lymphocytes # 0.8 L (1.0-4.8) k/uL Monocytes # 0.5 (0-1.0) k/uL Eosinophils # 0.2 (0-0.7) k/uL Basophils # 0.0 (0-0.2) k/uL Sodium 132 L (137-145) mmol/L Potassium 4.6 (3.5-5.1) mmol/L Chloride 97 L (98-107) mmol/L Carbon Dioxide 26 (22-30) mmol/L Anion Gap 9 mmol/L BUN 35 H (9-20) mg/dL Creatinine 1.27 H (0.66-1.25) mg/dL Est GFR (CKD-EPI)AfAm 66 (>60 ml/min/1.73 sqM) Est GFR (CKD-EPI)NonAf 57 (>60 ml/min/1.73 sqM) Glucose 140 H (74-99) mg/dL Plasma Lactic Acid Dayday 0.9 (0.7-2.0) mmol/L Calcium 9.5 (8.4-10.2) mg/dL Total Bilirubin 0.6 (0.2-1.3) mg/dL AST 30 (17-59) U/L ALT 20 (4-49) U/L Alkaline Phosphatase 53 (38-126) U/L Total Protein 6.8 (6.3-8.2) g/dL Albumin 4.3 (3.5-5.0) g/dL Disposition Clinical Impression: Constipation, Seroma Disposition: HOME SELF-CARE Condition: Good Instructions (If sedation given, give patient instructions): Constipation (ED), Seroma (DC) Additional Instructions: Return to the emergency department for any new or worsening symptoms. Use Colace as prescribed to aid in constipation relief. Follow-up as scheduled with your surgeon for further evaluation. recommend that you increase hydration. Prescriptions: Docusate [Colace] 100 mg PO DAILY #10 capsule Is patient prescribed a controlled substance at d/c from ED?: No Referrals: Hoda Castellano MD [Primary Care Provider] - 1-2 days Time of Disposition: 16:07
--- NOTE | 2023-11-24 13:25 | XR ---
EXAMINATION TYPE: XR KUB DATE OF EXAM: 11/24/2023 1:08 PM CLINICAL INDICATION: Male, 68 years old with history of constipation; COMPARISON: None. TECHNIQUE: One radiographic view of the abdomen was obtained. FINDINGS: There is a small stool burden, otherwise, the bowel gas pattern is nonspecific without dila shana loops of small or large bowel. . Fecal material and gas are demonstrated throughout the colon and rectum. There is no evidence for organomegaly or pneumoperitoneum. The osseous structures are intact. No ab normal calcifications are present. Tubing projects over the pelvis. IMPRESSION: Small to moderate amount stool in the colon. Otherwise, Nonspecific bowel gas pattern without radiogr aphic evidence for acute process. [facility], , 11/24/2023 1:22 PM
[2023-11-24 13:53] LABS: Basophils % (A) 1 %; Eosinophils # (A) 0.2 k/uL (0-0.7); Eosinophils % (A) 3 %; HCT 40.3 % (39.0-53.0); HGB 12.9 gm/dL (13.0-17.5); Lymphocytes # (A) 0.8 k/uL (1.0-4.8); Lymphocytes % (A) 13 %; MCH 30.3 pg (25.0-35.0); MCV 94.8 fL (80.0-100.0); Mean Platelet Volume 7.6; Monocytes # (A) 0.5 k/uL (0-1.0); Monocytes % (A) 9 %; Neutrophils # (A) 4.3 k/uL (1.3-7.7); Neutrophils % (A) 73 %; Platelet Count 199 k/uL (150-450); RBC 4.25 m/uL (4.30-5.90); RDW 12.9 % (11.5-15.5); WBC 5.9 k/uL (3.8-10.6)
[2023-11-24 14:08] LABS: ALT 20 U/L (4-49); AST 30 U/L (17-59); African American GFR (CKD) 66 (>60 ml/min/1.73 sqM); Albumin 4.3 g/dL (3.5-5.0); Alkaline Phosphatase 53 U/L (38-126); Anion Gap 9 mmol/L; Blood Urea Nitrogen 35 mg/dL (9-20); Calcium 9.5 mg/dL (8.4-10.2); Carbon Dioxide 26 mmol/L (22-30); Chloride 97 mmol/L (98-107); Glucose 140 mg/dL (74-99); Non-African American GFR(CKD) 57 (>60 ml/min/1.73 sqM); Potassium 4.6 mmol/L (3.5-5.1); Sodium 132 mmol/L (137-145); Total Bilirubin 0.6 mg/dL (0.2-1.3); Total Protein 6.8 g/dL (6.3-8.2)
--- NOTE | 2023-11-24 15:13 | CT ---
EXAMINATION TYPE: CT abdomen pelvis w con DATE OF EXAM: 11/24/2023 COMPARISON: NONE HISTORY: 68-year-old male Recent hernia repair, pt now c/o constipation following surgery. R/O Ileus. TECHNIQUE: Contiguous axial scanning of the abdomen and pelvis following administration of 100 ml Iso lee 300 IV contrast. Delayed images through the kidneys and coronal/sagittal reconstructions perform ed. CT DLP: 1513.9 mGycm Automated exposure control for dose reduction was used. FINDINGS: The heart is borderline enlarged without pericardial effusion. Scattered three-vessel coronary artery calcifications are present. Mild aneurysm ascending aorta 4.1 cm. Strandy atelectasis lung bases. Tiny hiatal hernia. Portal venous system is patent. No focal liver lesion. No biliary ductal dilatation. Gallbladder, adrenal glands, spleen, and pancreas within normal limits. Kidneys show multiple parapelvic cysts and a few cortical cysts measuring up to 2.3 cm. Mild to moderate metastatic calcifications abdominal aorta and common iliac arteries. No dilated small bowel, free fluid, or free air. No mesenteric or retroperitoneal lymphadenopathy. Normal appendix. There is moderate stool burden. Sigmoid diverticulosis. No pericolonic inflammatory change. Bladder is urine distended. Prostate gland borderline enlarged at 4.0 cm. Left-sided pelvic phlebolit h. No abnormal fluid collection in the pelvis or pelvic lymphadenopathy. Bones: Hypertrophic facet arthropathy mid to lower lumbar spine. Moderate degenerative disc disease L 4-L5.-Lower thoracic spine. Focal periumbilical subcutaneous fat stranding and soft tissue thickening. A surgical drain is presen t around this location. Small foci of air along the anterior abdominal wall musculature and focal mor e extensive soft tissue stranding deep to the abdominal wall musculature here. There is also platelik e fluid collection measuring 5.7 cm wide by 4.9 cm craniocaudal by 2.2 cm thick along the inferior ma rgin of the mesh repair within the intra-abdominal space. IMPRESSION: 1. EVIDENCE OF RECENT UMBILICAL HERNIA REPAIR. A SURGICAL DRAIN REMAINS IN THIS REGION. HOWEVER, THER E IS SOME FAT STRANDING BOTH IN THE SUBCUTANEOUS FAT AND DEEPER INTRA-ABDOMINAL OMENTAL FAT BEHIND TH E UMBILICUS. SMALL FOCI OF AIR ARE PRESENT AT THE ABDOMINAL WALL MUSCULATURE AND THERE IS PLATELIKE F LUID COLLECTION MEASURING 5.7 X 4.9 X 2.2 CM ALONG THE INFERIOR PORTION OF THE MESH REPAIR WITHIN THE INTRA-ABDOMINAL SPACE. CORRELATE TO TIME SINCE SURGERY TO DETERMINE IF THIS REPRESENTS INFECTION WITH ABSCESS OR RESIDUAL EARLY POSTOPERATIVE CHANGES WITH SEROMA. 2. MODERATE STOOL BURDEN suggests constipation. Sigmoid diverticulosis without acute diverticulitis. [facility], , 11/24/2023 3:11 PM
[2023-11-24] MEDS: MAGNESIUM HYDROXIDE 2,400 MG/30 ML CUP PO PRN (16:49)
[2023-11-24 16:51] VITALS: BP 139/80; PULSE 101; RESP 18; TEMP 98.3
== END 2023-11-24 16:51 | disposition home or self-care (01) ==
LOC: EC 12:06
CPT/HCPCS: 36415; 74018; 74177; 80053; 83605; 85025; 99284